=== PATIENT | female | born 1960 | race Caucasian/White ===

== ENCOUNTER 2024-01-16 05:51 | Day surgery (SDC) | payer BC ==
[2024-01-16] MEDS ORDERED: Lactated Ringers 1,000 ML IV ONE (06:16)
[2024-01-16 06:31] VITALS: RESP 16
[2024-01-16] MEDS: Lactated Ringers 1,000 ML IV SCH (06:51)
[2024-01-16] MEDS ORDERED: Versed 2 MG/2 ML Injection ONE (07:29)
[2024-01-16] MEDS ORDERED: DIPRIVAN 200 MG/20 ML IV ONE (07:29)
[2024-01-16 08:12] VITALS: TEMP 97.8
[2024-01-16 08:26] VITALS: BP 140/87; PULSE 68; O2SAT 96
--- NOTE | 2024-01-16 09:31 | OP ---
SURGERY DATE: 01/16/2024 SURGERY TIME: 730 PREOPERATIVE DIAGNOSIS: 1. SCREENING EXAM. POSTOPERATIVE DIAGNOSIS: 1. NORMAL COLON. PROCEDURE: 1. Colonoscopy. SURGEON: Dr. Pearson. ANESTHESIA: MAC. Medications given by the Anesthesia Department. BRIEF HISTORY: The patient is a 63 y/o WF presenting now for screening colonoscopy. The patient was described the risks of the procedure including the risk of perforation, phlebitis, untoward reaction to medication, bleeding, and missed lesions. The patient verbalized her understanding and desired to have the procedure performed. DESCRIPTION OF PROCEDURE: The patient was given the medications by the Anesthesia Department. She had continuous pulse oximetry, ECG monitoring, and intermittent BP monitoring during the examination. She was placed in the left lateral decubitus position. A digital rectal examination was performed and revealed normal anal sphincter tone and no masses. The flexible Olympus pediatric colonoscope was used to intubate the rectum. A view of the colon was developed sequentially to the cecum. Upon insertion and withdrawal, including a retroflex view in the rectum, no mucosal lesions were encountered. The scope was removed from the patient who tolerated the procedure well and was sent back to OP recovery in good condition. The prep was noted to be fair to good.
== END 2024-01-16 08:35 | disposition home or self-care (01) ==
LOC: SDC 05:51
PROVIDERS: ATTEND Family Medicine
DX: Z12.11 Encounter for screening for malignant neoplasm of colon (principal); E11.9 Type 2 diabetes mellitus without complications
CPT/HCPCS: 82947; J2250; J2704